=== PATIENT | female | born 1990 | race Caucasian/White ===

== ENCOUNTER 2016-08-16 11:39 | Day surgery (SDC) | payer OTHER ==
[~2016-08-16] VITALS: Ht 157.5 cm; Wt 117.8 kg
[2016-08-16 12:11] VITALS: Ht 157.5 cm; Wt 117.8 kg
[2016-08-16] MEDS ORDERED: VILA20TA PO (12:23)
[2016-08-16] MEDS ORDERED: OMEP20CA16 PO (12:23)
[2016-08-16] MEDS ORDERED: [UNRECOGNIZED DRUG - OTHER] (12:23)
[2016-08-16 12:40] VITALS: BP 118/73; PULSE 84; RESP 15
[2016-08-16] MEDS ORDERED: PROPOFOL 20 ML ONE (12:41)
[2016-08-16] MEDS ORDERED: FENTAnyl 50 MCG/ML VIAL ONE (12:41)
[2016-08-16] MEDS ORDERED: MIDAZOLAM 1 MG/ML 2 ML INJ ONE ×2 (12:42)
[2016-08-16 13:30] VITALS: BP 129/80; PULSE 78; RESP 16
--- NOTE | 2016-08-16 13:31 | GILP ---
DATE OF PROCEDURE: 08/16/2016 NAME OF PROCEDURE: Esophagogastroduodenoscopy and biopsy. SURGEON: Kelly Madden MD PREOPERATIVE DIAGNOSES: 1. Abdominal pain. 2. Chronic heartburn. POSTOPERATIVE DIAGNOSES: 1. Hiatal hernia. 2. Gastroesophageal reflux disease. 3. Gastritis. 4. Gastric mucosal biopsies were taken for Helicobacter pylori test. INDICATION FOR THE PROCEDURE: Ms. Shanelle Mathias is a 26-year-old female patient who had upper abdom inal pain and chronic heartburn, not responding to therapy. The patient was scheduled for endoscopi c examination for further evaluation. The procedure and possible complications are well explained to the patient. The patient understood and consented to the procedure. DESCRIPTION OF PROCEDURE: Under the influence of anesthesia, the gastroscope was carefully introduc ed into the esophagus and under direct vision, it was advanced to the stomach and through the pyloru s into the duodenal bulb and descending duodenum. FINDINGS: ESOPHAGUS: The patient had hiatal hernia and gastroesophageal reflux disease. STOMACH: She had gastritis. Gastric mucosal biopsies were taken for H. pylori test. DUODENUM: Normal. She tolerated the procedure very well and there was no complication from the procedure. At the end of the procedure, she was awake with stable vital signs and she was discharged home to the care of h family. IMPRESSION: Please see postoperative diagnoses. PLAN: 1. Continue omeprazole. 2. Add Zantac 300 mg p.o. at bedtime. 3. Await H. pylori test report. Dictated By: KELLY MADDEN MD GD/NTS Conf#: [id number] DID#: [id number] CC: KELLY MADDEN MD;*EndCC*
== END 2016-08-16 14:21 | disposition home or self-care (01) ==
LOC: GIL 11:39
PROVIDERS: ATTEND Internal Medicine Gastroenterology
DX: R10.10 Upper abdominal pain, unspecified (principal); K21.9 Gastro-esophageal reflux disease without esophagitis; K44.9 Diaphragmatic hernia without obstruction or gangrene; K29.70 Gastritis, unspecified, without bleeding; E66.01 Morbid (severe) obesity due to excess calories; Z68.42 Body mass index [BMI] 45.0-49.9, adult; G47.30 Sleep apnea, unspecified; F32.9 Major depressive disorder, single episode, unspecified; F41.9 Anxiety disorder, unspecified
CPT/HCPCS: 43239; 84703; 87081; J2250; J3010; Z7610